=== PATIENT | female | born 1975 | race Caucasian/White ===

== ENCOUNTER 2018-05-19 18:19 | Emergency (ER) | payer BC ==
[2018-05-19 18:29] VITALS: O2SAT 100
--- NOTE | 2018-05-19 18:36 | ERPHSYRPT ---
- History of Present Illness Time Seen by Provider: 05/19/18 18:34 Source: patient Exam Limitations: no limitations Patient Subjective Stated Complaint: PT states "Back in February I was digging with a shovel and hit some rocks. I think I have a stress fracture on the top of my right foot." Triage Nursing Assessment: Pt alert and oriented X 3, skin pwd. PT ambulates with an upright steady gait, able to speak in clear full sentences. top of pt right foot has slight swelling noted. Physician History: 42 y/o white female presents with chronic intermittent right foot pain with intermittent swelling. pt injured right foot back in February of 2018 while digging up rocks at home. pain never has completely resolved Method of Injury: direct blow Occurred: other (2 months ago) Quality: intermittent, sharpness Severity of Pain-Max: mild Severity of Pain-Current: mild Lower Extremities Pain: foot: right Modifying Factors: Improves With: movement Associated Symptoms: other (hurts at times to walk on it), No unable to bear weight, No dizzy, No seizure, No snapping sensation, No popping sensation Allergies/Adverse Reactions: No Known Drug Allergies Allergy (Verified 05/19/18 18:29) Home Medications: No Reportable Medications [No Reported Medications] 05/19/18 [History] Hx Tetanus, Diphtheria Vaccination/Date Given: No Hx Influenza Vaccination/Date Given: No Hx Pneumococcal Vaccination/Date Given: No Immunizations Up to Date: Yes - Review of Systems Constitutional: No Symptoms Eyes: No Symptoms Ears, Nose, & Throat: No Symptoms Respiratory: No Symptoms Cardiac: No Symptoms Abdominal/Gastrointestinal: No Symptoms Genitourinary Symptoms: No Symptoms Musculoskeletal: Injury (right foot) Skin: No Symptoms Neurological: No Symptoms Psychological: No Symptoms Endocrine: No Symptoms - Past Medical History Pertinent Past Medical History: Yes Neurological History: No Pertinent History ENT History: No Pertinent History Cardiac History: No Pertinent History Respiratory History: No Pertinent History Endocrine Medical History: No Pertinent History Musculoskeletal History: No Pertinent History GI Medical History: No Pertinent History History: No Pertinent History Psycho-Social History: No Pertinent History Female Reproductive Disorders: No Pertinent History - Past Surgical History Past Surgical History: Yes Neuro Surgical History: No Pertinent History Cardiac: No Pertinent History Respiratory: No Pertinent History Gastrointestinal: No Pertinent History Genitourinary: No Pertinent History Musculoskeletal: Orthopedic Surgery Female Surgical History: No Pertinent History - Social History Smoking Status: Never smoker Exposure to second hand smoke: No Drug Use: none Patient Lives Alone: No - Female History Hx Last Menstrual Period: 04/14/2018 Hx Now: No - Nursing Vital Signs Nursing Vital Signs: Initial Vital Signs Temperature 98.5 F 05/19/18 18:22 Pulse Rate 88 05/19/18 18:22 Respiratory Rate 18 05/19/18 18:22 Blood Pressure 121/84 05/19/18 18:22 O2 Sat by Pulse Oximetry 100 05/19/18 18:22 Pain Scale Pain Intensity 5 - Physical Exam General Appearance: no apparent distress, alert, anxiety Eyes, Ears, Nose, Throat Exam: normal ENT inspection, moist mucous membranes Neck Exam: normal inspection, non-tender, supple, full range of motion Cardiovascular/Respiratory Exam: chest non-tender, no respiratory distress Gastrointestinal/Abdominal Exam: non-tender Back Exam: normal inspection, normal range of motion, No CVA tenderness, No vertebral tenderness Hips Exam: bilateral: non-tender, normal inspection, normal range of motion, no evidence of injury Legs Exam: bilateral leg: non-tender, normal inspection, normal range of motion , no evidence of injury Knees Exam: bilateral knee: non-tender, normal inspection, normal range of motion, no evidence of injury Ankle Exam: bilateral ankle: non-tender, normal inspection, normal range of motion, no evidence of injury Foot Exam: right foot: soft tissue tenderness, swelling, left foot: non-tender, bilateral foot: normal inspection, normal range of motion, no evidence of injury Neuro/Tendon Exam: normal sensation, normal motor functions, normal tendon functions, responds to pain, no evidence tendon injury Mental Status Exam: alert, oriented x 3, cooperative Skin Exam: normal color, warm, dry SpO2 Interpretation: normal SpO2: 100 Oxygen Delivery: Room Air - Course Nursing assessment & vital signs reviewed: Yes Ordered Tests: Active Orders 24 hr Category Date Time Status FOOT (MINIMUM 3 VIEWS) Stat Exams 05/19/18 18:41 Taken Lab/Rad Data: xray right foot- no acute fx or dislocation - Progress Progress: unchanged Counseled pt/family regarding: diagnosis, need for follow-up, rad results - Departure Time of Disposition: 19:04 Departure Disposition: Home Clinical Impression: Right foot pain Condition: Stable Critical Care Time: No Referrals: ADRIANNE CANO [Primary Care Provider] - Additional Instructions: ice pack to area 3 times daily for 2 days. use tylenol and ibuprofen for pain. follow up with primary doctor for further management.
[2018-05-19 19:17] VITALS: BP 107/60; PULSE 80
--- NOTE | 2018-05-20 08:36 | XRAY ---
Indication: Pain and swelling following injury. Comparison: None 3 nonweightbearing views of the right foot demonstrates small plantar heel spur and tiny distal tibia anterior spur. No other bony, articular, or soft tissue abnormalities.
== END 2018-05-19 19:24 | disposition home or self-care (01) ==
LOC: ED 18:19
DX: M79.671 Pain in right foot (principal); M25.474 Effusion, right foot
CPT/HCPCS: 73630; 99283

== ENCOUNTER 2022-10-03 20:56 | Emergency (ER) | payer BC ==
--- NOTE | 2022-10-03 21:06 | ERPHSYRPT ---
- History of Present Illness Time Seen by Provider: 10/03/22 21:06 Source: patient, family Exam Limitations: no limitations Physician History: This is a morbidly obese white female patient of Dr. Hendricks who has had coughing and spells of shortness of breath with coughing intermittently for the last 2 weeks. However last few days it is becoming more constant. 2 days ago and just prior she had a negative COVID test. 2 days ago she was tested for influenza AMB and they were negative. Patient states she is not improving. She does not have chest pain. She has no abdominal pain. She said no nausea vomiting or diarrhea. She takes no medications chronically and she has no known drug allergies. Timing/Duration: week(s) (2), worse Severity of Dyspnea-Max: mild (To moderate) Severity of Dyspnea-Current: mild Possible Cause: no prior episodes Associated Symptoms: cough, wheezing Allergies/Adverse Reactions: No Known Drug Allergies Allergy (Verified 10/03/22 20:57) Hx Tetanus, Diphtheria Vaccination/Date Given: No Hx Influenza Vaccination/Date Given: No Hx Pneumococcal Vaccination/Date Given: No Travel Risk - International Travel Have you traveled outside of the country in past 3 weeks: No - Coronavirus Screening Are you exhibiting any of the following symptoms?: Yes Symptoms: Cough: New Onset, Shortness of Breath Close contact with a COVID-19 positive Pt in past 14-21 Days: Yes - Review of Systems Constitutional: No Symptoms Eyes: No Symptoms Ears, Nose, & Throat: No Symptoms Respiratory: No Symptoms, Cough, Dyspnea (With coughing), Wheezing (Bilateral upper lungs) Cardiac: No Symptoms Abdominal/Gastrointestinal: No Symptoms Genitourinary Symptoms: No Symptoms Musculoskeletal: No Symptoms Skin: No Symptoms Neurological: No Symptoms Psychological: No Symptoms Endocrine: No Symptoms Hematologic/Lymphatic: No Symptoms Immunological/Allergic: No Symptoms All Other Systems: Reviewed and Negative - Past Medical History Pertinent Past Medical History: Yes Neurological History: No Pertinent History ENT History: No Pertinent History Cardiac History: No Pertinent History Respiratory History: No Pertinent History Endocrine Medical History: No Pertinent History Musculoskeletal History: No Pertinent History GI Medical History: No Pertinent History History: No Pertinent History Psycho-Social History: No Pertinent History Female Reproductive Disorders: No Pertinent History - Past Surgical History Past Surgical History: Yes Neuro Surgical History: No Pertinent History Cardiac: No Pertinent History Respiratory: No Pertinent History Gastrointestinal: No Pertinent History Genitourinary: No Pertinent History Musculoskeletal: Orthopedic Surgery Female Surgical History: No Pertinent History - Social History Smoking Status: Never smoker Exposure to second hand smoke: No Drug Use: none Patient Lives Alone: No - Nursing Vital Signs Nursing Vital Signs: Initial Vital Signs Temperature 96.3 F 10/03/22 20:57 Pulse Rate 114 H 10/03/22 20:57 Respiratory Rate 24 10/03/22 20:57 Blood Pressure 164/119 10/03/22 20:57 O2 Sat by Pulse Oximetry 99 10/03/22 20:57 Pain Scale Pain Intensity 4 - Physical Exam General Appearance: no apparent distress, alert, anxiety Eye Exam: PERRL/EOMI, eyes nml inspection Ears, Nose, Throat Exam: hearing grossly normal, normal ENT inspection, normal pharynx Neck Exam: normal inspection, non-tender, supple, full range of motion Respiratory Exam: wheezing (Mild bilateral upper wheezing that is expiratory), No chest tenderness, No respiratory distress Cardiovascular/Chest Exam: tachycardia Abdominal/Gastrointestinal Exam: soft, normal bowel sounds, No tenderness Rectal Exam: not done Extremity Exam: non-tender, normal range of motion, normal inspection Neurologic Exam: alert, oriented x 3, cooperative, cut out worker II-XII nml as tested, normal mood/affect, nml cerebellar function, nml station & gait Skin Exam: normal color, warm, dry Lymphatic Exam: No adenopathy SpO2 Interpretation: normal O2 Delivery: Room Air Ordered Tests: Active Orders 24 hr Category Date Time Status CHEST 1 VIEW (PORTABLE) Stat Exams 10/03/22 21:21 Taken CHEST WITH CONTRAST [CT] Stat Exams 10/03/22 22:47 Taken BMP Stat Lab 10/03/22 21:21 Completed CBC W DIFF Stat Lab 10/03/22 21:21 Completed D-DIMER QUANTITATIVE Stat Lab 10/03/22 21:20 Completed Respiratory Therapy Assessment DAILY RT 10/03/22 21:32 Active Medication Summary Discontinued Medications Generic Name Dose Route Start Last Admin Trade Name Freq PRN Reason Stop Dose Admin Hydrocodone Bitart/Acetaminophen 10 ml 10/04/22 01:20 Hydrocodone/Acetaminophen 5 Ml Udcup PO 10/04/22 01:21 STAT STA Albuterol Sulfate Confirm 10/03/22 21:20 Albuterol Sulfate 2.5 Mg/3 Ml Neb Administered 10/03/22 21:21 Dose 2.5 mg IH .STK-MED ONE Albuterol Sulfate 2.5 mg 10/03/22 21:31 10/03/22 21:25 Albuterol Sulfate 2.5 Mg/3 Ml Neb IH 10/03/22 21:32 2.5 mg STAT ONE Administration Albuterol Sulfate Confirm 10/04/22 01:30 Albuterol Sulfate 2.5 Mg/3 Ml Neb Administered 10/04/22 01:31 Dose 2.5 mg IH .STK-MED ONE Ceftriaxone Sodium 1,000 mg 10/03/22 22:28 10/03/22 22:39 Ceftriaxone Sodium 1000 Mg Inj Vial IM 10/03/22 22:29 1,000 mg STAT ONE Administration Ceftriaxone Sodium Confirm 10/03/22 22:35 Ceftriaxone Sodium 1000 Mg Inj Vial Administered 10/03/22 22:36 Dose 1,000 mg .ROUTE .STK-MED ONE Sodium Chloride 500 mls @ 500 mls/hr 10/03/22 22:45 10/04/22 00:43 Sodium Chloride 0.9% 500 Ml IV 10/03/22 23:44 Infused .Q1H ONE Infusion Sodium Chloride Confirm 10/03/22 23:30 Sodium Chloride 0.9% 500 Ml Administered 10/03/22 23:31 Dose 500 mls @ ud IV .STK-MED ONE Lidocaine HCl Confirm 10/03/22 22:35 Lidocaine Hcl 1% 20 Ml Mdv 20 Ml Ml Administered 10/03/22 22:36 Dose 3 ml .ROUTE .STK-MED ONE Ondansetron HCl 4 mg 10/03/22 22:46 10/03/22 23:31 Ondansetron Hcl 4 Mg/2 Ml Vial IV 10/03/22 22:47 4 mg STAT ONE Administration Ondansetron HCl Confirm 10/03/22 23:30 Ondansetron Hcl 4 Mg/2 Ml Vial Administered 10/03/22 23:31 Dose 4 mg .ROUTE .STK-MED ONE Lab/Rad Data: Laboratory Result Diagrams 10/03/22 21:21 10/03/22 21:21 Laboratory Results 10/03/22 10/03/22 10/03/22 Range/Units Unknown 21:21 21:21 WBC 16.1 H (4.0-10.5) x10^3/uL RBC 4.46 (4.1-5.4) x10^6/uL Hgb 13.3 (12.0-16.0) g/dL Hct 42.6 (35-47) % MCV 95.5 (78-100) fL MCH 29.8 (26-32) pg MCHC 31.2 L (32-36) g/dL RDW 13.1 (11.5-14.0) % Plt Count 264 (150-450) x10^3/uL MPV 9.7 (7.5-11.0) fL Gran % 86.4 H (36.0-66.0) % Immature Gran % (Auto) 0.7 H (0.00-0.4) % Nucleat RBC Rel Count 0.0 (0.00-0.1) % Eos # (Auto) 0.89 H (0-0.5) x10^3/uL Immature Gran # (Auto) 0.11 H (0.00-0.03) x10^3u/L Absolute Lymphs (auto) 0.79 L (1.0-4.6) x10^3/uL Absolute Monos (auto) 0.38 (0.0-1.3) x10^3/uL Absolute Nucleated RBC 0.00 (0.00-0.01) x10^3u/L Lymphocytes % 4.9 L (24.0-44.0) % Monocytes % 2.4 (0.0-12.0) % Eosinophils % 5.5 H (0.00-5.0) % Basophils % 0.1 (0.0-0.4) % Absolute Granulocytes 13.95 H (1.4-6.9) x10^3/uL Basophils # 0.02 (0-0.4) x10^3/uL D-Dimer (0.0-0.50) mg/L Sodium 137 (137-145) mmol/L Potassium 3.8 (3.5-5.1) mmol/L Chloride 101 (98-107) mmol/L Carbon Dioxide 25 (22-30) mmol/L Anion Gap 15.1 H (5-15) MEQ/L BUN 17 (7-17) mg/dL Creatinine 0.56 (0.52-1.04) mg/dL Estimated GFR > 60.0 ML/MIN Glucose 123 H (74-106) mg/dL Calcium 9.4 (8.4-10.2) mg/dL Influenza Type A Ag NEGATIVE (NEGATIVE) Influenza Type B Ag NEGATIVE (NEGATIVE) RSV (PCR) NEGATIVE (Negative) SARS-CoV-2 (PCR) NEGATIVE (NEGATIVE) Group A Strep Antibody Cancelled 10/03/22 Range/Units 21:20 WBC (4.0-10.5) x10^3/uL RBC (4.1-5.4) x10^6/uL Hgb (12.0-16.0) g/dL Hct (35-47) % MCV (78-100) fL MCH (26-32) pg MCHC (32-36) g/dL RDW (11.5-14.0) % Plt Count (150-450) x10^3/uL MPV (7.5-11.0) fL Gran % (36.0-66.0) % Immature Gran % (Auto) (0.00-0.4) % Nucleat RBC Rel Count (0.00-0.1) % Eos # (Auto) (0-0.5) x10^3/uL Immature Gran # (Auto) (0.00-0.03) x10^3u/L Absolute Lymphs (auto) (1.0-4.6) x10^3/uL Absolute Monos (auto) (0.0-1.3) x10^3/uL Absolute Nucleated RBC (0.00-0.01) x10^3u/L Lymphocytes % (24.0-44.0) % Monocytes % (0.0-12.0) % Eosinophils % (0.00-5.0) % Basophils % (0.0-0.4) % Absolute Granulocytes (1.4-6.9) x10^3/uL Basophils # (0-0.4) x10^3/uL D-Dimer 1.34 H* (0.0-0.50) mg/L Sodium (137-145) mmol/L Potassium (3.5-5.1) mmol/L Chloride (98-107) mmol/L Carbon Dioxide (22-30) mmol/L Anion Gap (5-15) MEQ/L BUN (7-17) mg/dL Creatinine (0.52-1.04) mg/dL Estimated GFR ML/MIN Glucose (74-106) mg/dL Calcium (8.4-10.2) mg/dL Influenza Type A Ag (NEGATIVE) Influenza Type B Ag (NEGATIVE) RSV (PCR) (Negative) SARS-CoV-2 (PCR) (NEGATIVE) Group A Strep Antibody - Progress Progress: improved, re-examined Air Movement: good Progress Note: 10/03/22 22:12 Chest x-ray was interpreted by me. There is a questionable haziness in the right upper lobe. No other acute cardiopulmonary process appreciated. 10/03/22 22:13 This patient's medical issue is 1 of moderate complexity. The patient work-up and the level of complexity is based on the review of the patient's past medical history, medication list, drug allergy list, past medical history and complaint as well as findings on physical examination. Work-up includes chest x-ray, CBC, CMP, D-dimer. We also performed group A strep swab and viral swabs. 10/03/22 23:11 Patient's D-dimer returned elevated and therefore we placed an IV, infusing normal saline solution and ordered a CTA of the chest to evaluate for pulmonary embolus. Patient did have an episode of mild acute vomiting. She feels better now. We will infuse Zofran 4 mg intravenously. Patient refused the group A strep swab. 10/04/22 01:17 Patient is feeling better at this time. Discharge plan is to provide the patient with a prescription for cefdinir 300 mg orally twice a day for 7 days and Zofran ODT 4 mg orally. 10/04/22 01:35 CT chest with contrast shows no pulmonary embolism. There is no aortic dissection. Blood Culture(s) Obtained: No Antibiotics given: Yes Counseled pt/family regarding: lab results, diagnosis, need for follow-up, rad results Medical Desision Making - Independent Historian Additional History obtained from: Spouse - Discussion of managment Reviewed:: Test results Agreed on:: Treatment plan, need for follow-up - Diagnostic Testing Diagnostic test were ordered, analyzed, and reviewed by me: Yes Radiological Interpretation: Interpreted by me - Risk of complications The pt has a mod risk of morbidity or mortality based on: Need for prescription drug management - Departure Departure Disposition: Home Clinical Impression: Pulmonary infiltrate in right lung on CXR, Leukocytosis Condition: Stable Critical Care Time: No Referrals: LOUISE HENDRICKS MD [Primary Care Provider] - Follow up/PCP as directed Additional Instructions: Drink plenty fluids. Take your medication as prescribed. Follow-up with your prescribing physician for further evaluation and management Prescriptions: Ondansetron ODT 4 MG [Zofran Odt 4 mg] 4 mg PO Q6H PRN PRN #10 tablet PRN Reason: Vomiting Cefdinir 300 mg PO BID #14 cap
[2022-10-03] MEDS ORDERED: PROVENTIL 2.5 MG/3 ML NEB IH ONE ×2 (21:20→21:31)
[2022-10-03 22:08] LABS: Absolute Neutrophil Ct (ANC) 13.95 x10^3/uL (1.4-6.9); BASOPHIL % 0.1 % (0.0-0.4); Basophil (Absolute #) 0.02 x10^3/uL (0-0.4); Eosinophil % 5.5 % (0.00-5.0); Eosinophil (Absolute #) 0.89 x10^3/uL (0-0.5); Hematocrit 42.6 % (35-47); Hemoglobin 13.3 g/dL (12.0-16.0); IMMATURE GRAN # 0.11 x10^3u/L (0.00-0.03); IMMATURE GRAN % 0.7 % (0.00-0.4); Lymphocyte (Absolute #) 0.79 x10^3/uL (1.0-4.6); Lymphocytes % 4.9 % (24.0-44.0); Mean Cell Volume 95.5 fL (78-100); Mean Corpuscular Hemoglobin 29.8 pg (26-32); Mean Corpuscular Hgb Concent. 31.2 g/dL (32-36); Mean Platelet Volume 9.7 fL (7.5-11.0); Monocyte (Absolute #) 0.38 x10^3/uL (0.0-1.3); Monocytes % 2.4 % (0.0-12.0); Neutrophil % 86.4 % (36.0-66.0); Platelet Count 264 x10^3/uL (150-450); Red Blood Count 4.46 x10^6/uL (4.1-5.4); Red Cell Distribution Width 13.1 % (11.5-14.0); White Blood Count 16.1 x10^3/uL (4.0-10.5)
[2022-10-03 22:23] LABS: ANION GAP 15.1 MEQ/L (5-15); BLOOD UREA NITROGEN 17 mg/dL (7-17); CHLORIDE 101 mmol/L (98-107); Calcium 9.4 mg/dL (8.4-10.2); Carbon Dioxide 25 mmol/L (22-30); Creatinine 1 0.56 mg/dL (0.52-1.04); EST GLOMERULAR FILTRATION RATE > 60.0 ML/MIN; Glucose 123 mg/dL (74-106); Potassium 3.8 mmol/L (3.5-5.1); SODIUM 137 mmol/L (137-145)
[2022-10-03] MEDS ORDERED: Rocephin 1000 MG INJ IM ONE (22:28)
[2022-10-03 22:32] LABS: INFLUENZA A NEGATIVE (NEGATIVE); INFLUENZA B NEGATIVE (NEGATIVE); RESPIRATORY SYNCTIAL VIRUS NEGATIVE (Negative); SARS-CoV-2 Xpert Express NEGATIVE (NEGATIVE)
[2022-10-03] MEDS ORDERED: Rocephin 1000 MG INJ ONE (22:35)
[2022-10-03] MEDS ORDERED: XYLOCAINE 1% HCL 20 ML MDV ONE (22:35)
[2022-10-03] MEDS ORDERED: Sodium Chloride 0.9% 500 ML 500 ML IV ONE ×2 (22:45→23:30)
[2022-10-03] MEDS ORDERED: Zofran 4 MG/2 ML VIAL IV ONE (22:46)
[2022-10-03] MEDS ORDERED: Zofran 4 MG/2 ML VIAL ONE (23:30)
[2022-10-04] MEDS ORDERED: HYDROCODONE-ACETAMIN 2.5-108/5 ML SOLUTION PO STA (01:20)
[2022-10-04] MEDS ORDERED: PROVENTIL 2.5 MG/3 ML NEB IH ONE ×2 (01:30→01:41)
[2022-10-04] MEDS ORDERED: HYDROCODONE-ACETAMIN 2.5-108/5 ML SOLUTION ONE (01:41)
[2022-10-04 03:00] VITALS: BP 141/89; PULSE 128; O2SAT 98
--- NOTE | 2022-10-04 07:57 | XRAY ---
Indication: Cough and short of breath. Elevated d-dimer. Pulmonary embolus. Multiple contiguous axial images obtained through the chest using 88 cc Isovue 370 contrast and PE protocol. Comparison: None Adequate opacification of the pulmonary arteries to include the lobar and segmental branches. No pulmonary embolus. Heart not enlarged. Aorta is normal in course and caliber. No pathologic mediastinal/hilar lymphadenopathy. Lungs demonstrates tiny right upper lobe calcified granuloma. No suspicious pulmonary mass/nodule, infiltrate, effusion, or pneumothorax. Bony thorax intact with minimal degenerative changes throughout the spine. Limited upper abdomen demonstrates cholecystectomy clips. Impression: 1. Negative pulmonary embolus. No acute cardiopulmonary abnormalities. 2. Incidental right upper lobe calcified granuloma and minimal degenerative spondylosis. Comment: Preliminary interpretation made by [facility]. No critical discrepancy.
--- NOTE | 2022-10-04 07:57 | XRAY ---
Indication: Cough. Short of breath. Comparison: Sep 22, 2022 Portable chest demonstrates normal heart and lungs again with incidental right mid lung calcified granuloma. Bony thorax intact with minimal degenerative changes. No new/acute findings.
== END 2022-10-04 03:00 | disposition home or self-care (01) ==
LOC: ED 20:56
DX: R91.8 Other nonspecific abnormal finding of lung field (principal); D72.829 Elevated white blood cell count, unspecified; R06.02 Shortness of breath; R05.9 Cough, unspecified
CPT/HCPCS: 0241U; 36000; 36415; 71045; 71260; 80048; 85025; 85379; 94640; 96360; 96372; 96374; 99284; J0696; J2405; J7609; A9270-GY

== ENCOUNTER 2023-10-21 16:58 | Emergency (ER) | payer BC ==
--- NOTE | 2023-10-21 17:14 | ERPHSYRPT ---
- History of Present Illness Historian: patient, family Exam Limitations: no limitations Timing/Duration: day(s) (2 to 3 days), other (Persistent) Abdominal Pain Onset Location: flank (Bilateral) Pain Radiation: RLQ, LLQ Severity of Pain-Max: mild (To moderate) Severity of Pain-Current: mild (To moderate) Modifying Factors: Improves With: movement, walking Associated Symptoms: denies symptoms Previous symptoms: no prior history, no recent treatment Hx Tetanus, Diphtheria Vaccination/Date Given: No Hx Influenza Vaccination/Date Given: No Hx Pneumococcal Vaccination/Date Given: No <MATILDE ALFARO - Last Filed: 10/21/23 18:50> <APOLLO ARAUZ - Last Filed: 10/21/23 20:07> - History of Present Illness Time Seen by Provider: 10/21/23 17:14 Physician History: This is an obese 48-year-old white female patient Dr. Manzano who presents with bilateral flank and bilateral lower quadrant abdominal pain. She is unsure whether this is infection or possibly muscular pain from lifting several records from one office and moving into another. What was different for her was approximately 2 days ago she noticed significant right flank pain with an episode of hematuria. Patient has had a tubal ligation in the past. She is currently not on her menstrual period. Under the subsequent 2 days the pain is also in the left flank and left lower quadrant. She has not been vomiting. She has not had a cough. She denies chest pain. She has not had any diarrhea. Patient takes no medications chronically and she has no known drug allergies. Patient has no history of kidney stones or ureteral stones. (MATILDE ALFARO) Allergies/Adverse Reactions: No Known Drug Allergies Allergy (Verified 10/21/23 17:12) Travel Risk - International Travel Have you traveled outside of the country in past 3 weeks: No - Emerging Infectious Disease Are you exhibiting symptoms associated with any current EIDs: No <MATILDE ALFARO - Last Filed: 10/21/23 18:50> - Review of Systems Constitutional: No Symptoms Eyes: No Symptoms Ears, Nose, & Throat: No Symptoms Respiratory: No Symptoms Cardiac: No Symptoms Abdominal/Gastrointestinal: Abdominal Pain (Bilateral lower quadrant) Genitourinary Symptoms: Hematuria (Single episode of gross hematuria), Flank Pain (Bilateral) Musculoskeletal: No Symptoms Skin: No Symptoms Neurological: No Symptoms Psychological: No Symptoms Endocrine: No Symptoms Hematologic/Lymphatic: No Symptoms Immunological/Allergic: No Symptoms All Other Systems: Reviewed and Negative <MATILDE ALFARO - Last Filed: 10/21/23 18:50> - Past Medical History Pertinent Past Medical History: Yes Neurological History: No Pertinent History ENT History: No Pertinent History Cardiac History: No Pertinent History Respiratory History: No Pertinent History Endocrine Medical History: No Pertinent History Musculoskeletal History: No Pertinent History GI Medical History: No Pertinent History History: No Pertinent History Psycho-Social History: No Pertinent History Female Reproductive Disorders: No Pertinent History - Past Surgical History Past Surgical History: Yes Neuro Surgical History: No Pertinent History Cardiac: No Pertinent History Respiratory: No Pertinent History Gastrointestinal: No Pertinent History Genitourinary: No Pertinent History Musculoskeletal: Orthopedic Surgery Female Surgical History: No Pertinent History - Social History Smoking Status: Never smoker Exposure to second hand smoke: No Drug Use: none Patient Lives Alone: No <MATILDE ALFARO - Last Filed: 10/21/23 18:50> - Physical Exam General Appearance: no apparent distress, alert, anxiety, obese Eye Exam: PERRL/EOMI, eyes nml inspection Ears, Nose, Throat Exam: normal ENT inspection, moist mucous membranes Neck Exam: normal inspection, non-tender, supple, full range of motion Respiratory Exam: normal breath sounds, lungs clear, airway intact, No chest tenderness, No respiratory distress Cardiovascular Exam: regular rate/rhythm, normal heart sounds, normal peripheral pulses Gastrointestinal/Abdomen Exam: soft, normal bowel sounds, tenderness (Mild bilateral lower quadrant tenderness), guarding (Mild bilateral lower quadrant tenderness to palpation), No rebound Pelvic Exam: not done Rectal Exam: not done Back Exam: normal inspection, normal range of motion, CVA tenderness (Mild bilateral), No vertebral tenderness Extremity Exam: normal inspection, normal range of motion, pelvis stable Neurologic Exam: alert, oriented x 3, cooperative, delivery nurse II-XII nml as tested, normal mood/affect, nml cerebellar function, nml station & gait, sensation nml Skin Exam: normal color, warm, dry Lymphatic Exam: No adenopathy SpO2 Interpretation: normal O2 Delivery: Room Air <MATILDE ALFARO - Last Filed: 10/21/23 18:50> - Nursing Vital Signs Nursing Vital Signs: Initial Vital Signs Temperature 98.4 F 10/21/23 17:13 Pulse Rate 102 H 10/21/23 17:13 Respiratory Rate 18 10/21/23 17:13 Blood Pressure 133/73 10/21/23 17:13 O2 Sat by Pulse Oximetry 95 10/21/23 17:13 Pain Scale Pain Intensity 4 - Course Nursing assessment & vital signs reviewed: Yes <MATILDE ALFARO - Last Filed: 10/21/23 18:50> Ordered Tests: Active Orders 24 hr Category Date Time Status IV Insertion STAT Care 10/21/23 17:39 Active ABDOMEN AND PELVIS W/0 CONTRAS [CT] Stat Exams 10/21/23 17:34 Taken CBC W DIFF Stat Lab 10/21/23 19:30 Completed CMP Stat Lab 10/21/23 19:30 Completed CULTURE,URINE Stat Lab 10/21/23 18:52 Received LIPASE Stat Lab 10/21/23 19:30 Completed UA W/RFX UR CULTURE Stat Lab 10/21/23 18:52 Completed Medication Summary Discontinued Medications Generic Name Dose Route Start Last Admin Trade Name Jcalrosq PRN Reason Stop Dose Admin Sodium Chloride 500 mls @ 500 mls/hr 10/21/23 17:35 10/21/23 18:41 Sodium Chloride 0.9% 500 Ml IV 10/21/23 18:34 Infused .Q1H ONE Infusion Sodium Chloride Confirm 10/21/23 17:40 Sodium Chloride 0.9% 500 Ml Administered 10/21/23 17:41 Dose 500 mls @ ud IV .STK-MED ONE Ceftriaxone Sodium/Dextrose 2 g in 50 mls @ 100 mls/hr 10/21/23 19:25 10/21/23 19:30 Rocephin 2 Gm-D5w 50ml Bag IV 10/21/23 19:54 100 ml/hr STAT STA 100 mls/hr Administration Ceftriaxone Sodium/Dextrose Confirm 10/21/23 19:26 Rocephin 2 Gm-D5w 50ml Bag Administered 10/21/23 19:27 Dose 2 g in 50 mls @ ud IV .STK-MED ONE Lab/Rad Data: Laboratory Result Diagrams 10/21/23 19:30 10/21/23 19:30 Laboratory Results 03/28/24 03/28/24 03/28/24 Range/Units 19:30 19:30 18:52 WBC 11.6 H (4.0-10.5) x10^3/uL RBC 4.07 L (4.1-5.4) x10^6/uL Hgb 12.4 (12.0-16.0) g/dL Hct 38.9 (35-47) % MCV 95.6 (78-100) fL MCH 30.5 (26-32) pg MCHC 31.9 L (32-36) g/dL RDW 12.9 (11.5-14.0) % Plt Count 312 (150-450) x10^3/uL MPV 11.8 H (7.5-11.0) fL Gran % 71.7 H (36.0-66.0) % Immature Gran % (Auto) 0.3 (0.00-0.4) % Nucleat RBC Rel Count 0.0 (0.00-0.1) % Eos # (Auto) 0.19 (0-0.5) x10^3/uL Immature Gran # (Auto) 0.04 H (0.00-0.03) x10^3u/L Absolute Lymphs (auto) 2.07 (1.0-4.6) x10^3/uL Absolute Monos (auto) 0.94 (0.0-1.3) x10^3/uL Absolute Nucleated RBC 0.00 (0.00-0.01) x10^3u/L Lymphocytes % 17.9 L (24.0-44.0) % Monocytes % 8.1 (0.0-12.0) % Eosinophils % 1.6 (0.00-5.0) % Basophils % 0.4 (0.0-0.4) % Absolute Granulocytes 8.26 H (1.4-6.9) x10^3/uL Basophils # 0.05 (0-0.4) x10^3/uL Sodium 140 (135-145) mmol/L Potassium 4.0 (3.5-5.1) mmol/L Chloride 107 (98-107) mmol/L Carbon Dioxide 23 (22-30) mmol/L Anion Gap 14.6 (5-15) MEQ/L BUN 15 (7-17) mg/dL Creatinine 0.69 (0.52-1.04) mg/dL Estimated GFR 107.0 ML/MIN Glucose 83 (74-106) mg/dL Calcium 9.6 (8.4-10.2) mg/dL Total Bilirubin 0.40 (0.2-1.3) mg/dL AST 22 (14-36) U/L ALT 22 (0-35) U/L Alkaline Phosphatase 71 (38-126) U/L Serum Total Protein 7.3 (6.3-8.2) g/dL Albumin 4.2 (3.5-5.0) g/dL Lipase 70 (23-300) U/L Urine Color Yellow (Yellow) Urine Appearance Clear (Clear) Urine pH 6.0 (4.6-8.0) Ur Specific [place] 1.020 (1.005-1.030) Urine Protein Negative (Negative) Urine Glucose (UA) Negative (Negative) mg/dL Urine Ketones Negative (Negative) Urine Blood NHT (Negative) Urine Nitrite Negative (Negative) Urine Bilirubin Negative (Negative) Urine Urobilinogen 1.0 A (0.2) mg/dL Ur Leukocyte Esterase Moderate A (Negative) Urine Microscopic RBC 0-2 (0-5) /HPF Urine Microscopic WBC 21-50 A (0-5) /HPF Ur Epithelial Cells Rare (None Seen) /HPF Urine Bacteria Few A (None Seen) /HPF Urine Culture Reflexed YES (NO) - Progress Counseled pt/family regarding: lab results, diagnosis, rad results <MATILDE ALFARO - Last Filed: 10/21/23 18:50> - Progress Progress: improved <APOLLO ARAUZ - Last Filed: 10/21/23 20:07> - Progress Progress Note: 10/21/23 18:11 This patient's medical issue is 1 of moderate complexity. Level complexity in the workup performed is based on review of the patient's past medical history, review the patient medication list, review of patient drug allergy list, history of present illness and physical findings on examination. The initial workup decided upon between the patient and myself includes a urinalysis and a CT scan of the abdomen pelvis without contrast. If everything is negative, we will add laboratory data will. If the CT scan of the abdomen pelvis is negative but there is a urinary tract infection, we will treat her urinary tract infection and discharged her to home. 10/21/23 18:[address] scan of the abdomen pelvis without contrast was interpreted by the radiologist. I reviewed the impression. Impression states there are no comparison films. There is a normal appendix. There is right renal cortical scarring. Otherwise negative study for renal stone or evidence of obstructive uropathy 10/21/23 18:43 I am transferring care of this patient to Dr. Arauz at shift change. He will follow-up on the pending laboratory studies and make final disposition. (MATILDE TALLEY) 10/21/23 20:02 Patient is checked out to me at shift change from Dr. Merida with pending urinalysis results. Patient presented with bilateral flank/lower abdominal pa in/back pain which started after lifting heavy objects few days ago. Patient is not in any distress during my evaluation. No peritoneal signs. CT abdomen pelvis without contrast is negative for stone, obstruction or any other acute abdominal pelvic findings. I have obtained baseline labs with a CBC count of 11, unremarkable chemistries. She does have UTI and given a dose of Rocephin. I will continue with cefpodoxime to go home and outpatient follow-up recommended. I believe it has some element of musculoskeletal pain and will continue with NSAIDs. Recommended taking Tylenol ibuprofen as needed. Discussed signs symptoms of worsening needing return to ER which she seems understanding. Stable for discharge. 10/21/23 20:06 (APOLLO ARAUZ) Medical Desision Making - Independent Historian Additional History obtained from: Spouse - Diagnostic Testing Radiological Interpretation: Reviewed by me, Teleradiologist Report - Risk of complications Low Risk: Low risk of morbidity from additional dx testing or treatment <MATILDE ALFARO - Last Filed: 10/21/23 18:50> - Risk of complications The pt has a mod risk of morbidity or mortality based on: Need for prescription drug management <APOLLO ARAUZ - Last Filed: 10/21/23 20:07> - Departure Departure Disposition: Home Critical Care Time: No <MATILDE ALFARO - Last Filed: 10/21/23 18:50> - Departure Departure Disposition: Home <APOLLO ARAUZ - Last Filed: 10/21/23 20:07> - Departure Clinical Impression: Bilateral flank pain, UTI (urinary tract infection) Condition: Stable Referrals: LOUISE MANZANO MD [Primary Care Provider] - Follow up with PCP 1 day Instructions: Urinary Tract Infection, Adult (DC), Flank Pain (DC) Additional Instructions: Take Tylenol/ibuprofen as needed for pain. Follow-up with primary care for reevaluation. Return to ER for intractable pain, difficulty urination, intractable nausea vomiting/fever chills etc. Prescriptions: Ibuprofen 600 mg PO Q6HPRN PRN 10 Days #20 tablet PRN Reason: Pain Cefpodoxime Proxetil 200 mg [Vantin 200 mg] 200 mg PO BID 7 Days #14 tablet
[2023-10-21 17:22] VITALS: TEMP 98.4
[2023-10-21] MEDS ORDERED: Sodium Chloride 0.9% 500 ML 500 ML IV ONE (17:40)
[2023-10-21] MEDS: Sodium Chloride 0.9% 500 ML 500 ML IV ONE (17:41)
[2023-10-21 19:02] LABS: Appearance Clear (Clear); Bilirubin Negative (Negative); Blood NHT (Negative); Glucose, Urine Negative (Negative); Ketones Negative (Negative); Leukocyte Esterase Moderate (Negative); Nitrite Negative (Negative); Protein,Urine Dip Negative (Negative)
[2023-10-21 19:10] LABS: ADD URINE CULTURE? YES (NO); Bacteria Few /HPF (None Seen); Epithelial Cells Rare /HPF (None Seen); RBC 0-2 /HPF (0-5); WBC 21-50 /HPF (0-5)
[2023-10-21] MEDS ORDERED: ROCEPHIN 2 Gm-D5w 50ML BAG** 2 G/50 ML IVPB IV ONE (19:26)
[2023-10-21] MEDS: ROCEPHIN 2 Gm-D5w 50ML BAG** 2 G/50 ML IVPB IV STA (19:30)
[2023-10-21 19:33] LABS: Absolute Neutrophil Ct (ANC) 8.26 x10^3/uL (1.4-6.9); BASOPHIL % 0.4 % (0.0-0.4); Basophil (Absolute #) 0.05 x10^3/uL (0-0.4); Eosinophil % 1.6 % (0.00-5.0); Eosinophil (Absolute #) 0.19 x10^3/uL (0-0.5); Hematocrit 38.9 % (35-47); Hemoglobin 12.4 g/dL (12.0-16.0); IMMATURE GRAN # 0.04 x10^3u/L (0.00-0.03); IMMATURE GRAN % 0.3 % (0.00-0.4); Lymphocyte (Absolute #) 2.07 x10^3/uL (1.0-4.6); Lymphocytes % 17.9 % (24.0-44.0); Mean Cell Volume 95.6 fL (78-100); Mean Corpuscular Hemoglobin 30.5 pg (26-32); Mean Corpuscular Hgb Concent. 31.9 g/dL (32-36); Mean Platelet Volume 11.8 fL (7.5-11.0); Monocyte (Absolute #) 0.94 x10^3/uL (0.0-1.3); Monocytes % 8.1 % (0.0-12.0); Neutrophil % 71.7 % (36.0-66.0); Platelet Count 312 x10^3/uL (150-450); Red Blood Count 4.07 x10^6/uL (4.1-5.4); Red Cell Distribution Width 12.9 % (11.5-14.0); White Blood Count 11.6 x10^3/uL (4.0-10.5)
[2023-10-21 19:37] VITALS: RESP 18; O2SAT 98
[2023-10-21 19:46] LABS: ALBUMIN 4.2 g/dL (3.5-5.0); ANION GAP 14.6 MEQ/L (5-15); BILIRUBIN,TOTAL 0.4 mg/dL (0.2-1.3); Calcium 9.6 mg/dL (8.4-10.2); Creatinine 1 0.69 mg/dL (0.52-1.04); Total Protein 7.3 g/dL (6.3-8.2)
[2023-10-21 20:10] VITALS: BP 120/73; PULSE 86
--- NOTE | 2023-10-22 09:06 | XRAY ---
Indication: Bilateral flank and bilateral lower quadrant abdominal pain. Hematuria. Multiple contiguous axial images obtained through the abdomen and pelvis without contrast using renal stone protocol. Comparison: None Lung bases clear. Heart not enlarged. No renal calculus or evidence for obstructive uropathy in either system. Right mid renal cortical scarring. Noncontrasted stomach and bowel loops appear nonobstructed with normal appendix. Previous cholecystectomy. No free fluid/air. Remaining liver, pancreas, spleen, adrenal glands, kidneys, ureters, bladder, uterus, and aorta are unremarkable for noncontrast exam. Osseous structures intact with minimal/mild degenerative spondylosis throughout spine including 2- 3 mm anterior spondylolisthesis L4 on L5. Impression: 1. Negative renal calculus or evidence for obstructive uropathy. Right renal cortical scarring. 2. Chronic bony findings. 3. Remaining CT abdomen/pelvis without contrast exam is negative.
== END 2023-10-21 20:27 | disposition home or self-care (01) ==
LOC: ED 16:58
DX: N39.0 Urinary tract infection, site not specified (principal); R10.31 Right lower quadrant pain; R10.32 Left lower quadrant pain; R10.9 Unspecified abdominal pain
CPT/HCPCS: 36000; 36415; 74176; 80053; 81001; 83690; 85025; 87086; 96365; 99284; J0696

== ENCOUNTER 2023-12-02 18:07 | Emergency (ER) | payer BC ==
[2023-12-02 18:26] VITALS: TEMP 97.8
--- NOTE | 2023-12-02 18:32 | ERPHSYRPT ---
- History of Present Illness Time Seen by Provider: 12/02/23 18:12 Historian: patient Exam Limitations: no limitations Patient Subjective Stated Complaint: pt here for pain to both shoulders worse in left for about 30 mins now, Triage Nursing Assessment: pt alert, resp easy, skin w/d/p, walked in, edema to lower legs. no cough Physician History: 48 years old female fairly healthy presented in the ER with complains of sudden onset substernal chest pain/pressure with some radiation to the shoulders bilaterally with associated palpitations and shortness of breath almost 20 minutes prior to arrival. It started to improve on its own and currently having minimal chest tightness. Denies any fever chills cough or sick contact. Patient also has bilateral lower extremity swelling for last few weeks. Patient was seen at [facility] ER with a negative Doppler ultrasound, CTA chest and cardiac workup, was sent home on diuretics to take for few days. Patient reports after taking diuretics she feels some improvement in her leg swelling. Aspirin Treatment Today: unknown Allergies/Adverse Reactions: No Known Drug Allergies Allergy (Verified 12/02/23 18:09) Home Medications: No Reportable Medications [No Reported Medications] 12/02/23 [History] Hx Tetanus, Diphtheria Vaccination/Date Given: No Hx Influenza Vaccination/Date Given: Yes Hx Pneumococcal Vaccination/Date Given: No Immunizations Up to Date: Yes Travel Risk - International Travel Have you traveled outside of the country in past 3 weeks: No - Emerging Infectious Disease Are you exhibiting symptoms associated with any current EIDs: No Symptoms: Abdominal Pain - Review of Systems Constitutional: No Symptoms Eyes: No Symptoms Ears, Nose, & Throat: No Symptoms Respiratory: Dyspnea Cardiac: Chest Pain, Edema Abdominal/Gastrointestinal: No Symptoms Genitourinary Symptoms: No Symptoms Musculoskeletal: No Symptoms Skin: No Symptoms Neurological: No Symptoms Psychological: No Symptoms Endocrine: No Symptoms Hematologic/Lymphatic: No Symptoms - Past Medical History Pertinent Past Medical History: Yes Neurological History: No Pertinent History ENT History: No Pertinent History Cardiac History: No Pertinent History Respiratory History: No Pertinent History Endocrine Medical History: No Pertinent History Musculoskeletal History: No Pertinent History GI Medical History: No Pertinent History History: No Pertinent History Psycho-Social History: Anxiety Female Reproductive Disorders: No Pertinent History - Past Surgical History Past Surgical History: Yes Neuro Surgical History: No Pertinent History Cardiac: No Pertinent History Respiratory: No Pertinent History Gastrointestinal: No Pertinent History Genitourinary: No Pertinent History Musculoskeletal: Orthopedic Surgery Female Surgical History: No Pertinent History - Female History Hx Last Menstrual Period: week ago Hx Now: No - Social History Smoking Status: Never smoker Exposure to second hand smoke: No Drug Use: none Patient Lives Alone: No - Nursing Vital Signs Nursing Vital Signs: Initial Vital Signs Temperature 97.8 F 12/02/23 18:10 Pulse Rate 112 H 12/02/23 18:10 Respiratory Rate 16 12/02/23 18:10 Blood Pressure 160/100 12/02/23 18:10 O2 Sat by Pulse Oximetry 97 12/02/23 18:10 Pain Scale Pain Intensity 2 - Physical Exam General Appearance: no apparent distress, alert Eye Exam: PERRL/EOMI Ears, Nose, Throat Exam: normal ENT inspection, TMs normal, pharynx normal, moist mucous membranes Neck Exam: normal inspection, non-tender, supple, full range of motion Respiratory Exam: normal breath sounds, lungs clear Cardiovascular Exam: normal heart sounds, tachycardia Gastrointestinal/Abdomen Exam: soft, normal bowel sounds, tenderness Back Exam: normal inspection, normal range of motion Extremity Exam: normal inspection, normal range of motion Neurologic Exam: alert, oriented x 3, cooperative, No depressed mood/affect (Anxious) Skin Exam: normal color SpO2 Interpretation: normal SpO2: 97 O2 Delivery: Room Air - Course EKG Interpreted by Me: RATE (111), Sinus Tach, NORMAL AXIS, NORMAL INTERVALS, Non-specific ST Changes, Other (Nonspecific T wave changes) Ordered Tests: Active Orders 24 hr Category Date Time Status Laser Beam Color Scanner Operator STAT Care 12/02/23 18:30 Completed EKG-ER Only STAT Care 12/02/23 18:29 Completed IV Insertion STAT Care 12/02/23 18:29 Completed CHEST 1 VIEW (PORTABLE) Stat Exams 12/02/23 18:29 Taken CHEST WITH CONTRAST [CT] Stat Exams 12/02/23 20:28 Taken CBC W DIFF Stat Lab 12/02/23 18:40 Completed CMP Stat Lab 12/02/23 18:40 Completed D-DIMER QUANTITATIVE Stat Lab 12/02/23 18:40 Completed NT PRO BNPII Stat Lab 12/02/23 18:40 Completed TROPONIN Q4H Lab 12/02/23 18:40 Completed TROPONIN Q4H Lab 12/02/23 21:40 Completed Medication Summary Discontinued Medications Generic Name Dose Route Start Last Admin Trade Name Freq PRN Reason Stop Dose Admin Aspirin 324 mg 12/02/23 18:29 12/02/23 19:24 Aspirin 81 Mg Tab.Chew PO 12/02/23 18:30 324 mg STAT ONE Administration Aspirin Confirm 12/02/23 19:19 Aspirin 81 Mg Tab.Chew Administered 12/02/23 19:20 Dose 324 mg .ROUTE .STK-MED ONE Lab/Rad Data: Laboratory Result Diagrams 12/02/23 18:40 12/02/23 18:40 Laboratory Results 12/02/23 12/02/23 12/02/23 Range/Units 21:40 18:40 18:40 WBC (4.0-10.5) x10^3/uL RBC (4.1-5.4) x10^6/uL Hgb (12.0-16.0) g/dL Hct (35-47) % MCV (78-100) fL MCH (26-32) pg MCHC (32-36) g/dL RDW (11.5-14.0) % Plt Count (150-450) x10^3/uL MPV (7.5-11.0) fL Gran % (36.0-66.0) % Immature Gran % (Auto) (0.00-0.4) % Nucleat RBC Rel Count (0.00-0.1) % Eos # (Auto) (0-0.5) x10^3/uL Immature Gran # (Auto) (0.00-0.03) x10^3u/L Absolute Lymphs (auto) (1.0-4.6) x10^3/uL Absolute Monos (auto) (0.0-1.3) x10^3/uL Absolute Nucleated RBC (0.00-0.01) x10^3u/L Lymphocytes % (24.0-44.0) % Monocytes % (0.0-12.0) % Eosinophils % (0.00-5.0) % Basophils % (0.0-0.4) % Absolute Granulocytes (1.4-6.9) x10^3/uL Basophils # (0-0.4) x10^3/uL D-Dimer (0.0-0.50) mg/L Sodium (135-145) mmol/L Potassium (3.5-5.1) mmol/L Chloride (98-107) mmol/L Carbon Dioxide (22-30) mmol/L Anion Gap (5-15) MEQ/L BUN (7-17) mg/dL Creatinine (0.52-1.04) mg/dL Estimated GFR ML/MIN Glucose (74-106) mg/dL Calcium (8.4-10.2) mg/dL Total Bilirubin (0.2-1.3) mg/dL AST (14-36) U/L ALT (0-35) U/L Alkaline Phosphatase (38-126) U/L Troponin I < 0.012 < 0.012 (0.000-0.033) ng/mL NT-Pro-B Natriuret Pep < 20.0 (<300) pg/mL Serum Total Protein (6.3-8.2) g/dL Albumin (3.5-5.0) g/dL 12/02/23 12/02/23 12/02/23 Range/Units 18:40 18:40 18:40 WBC 8.8 (4.0-10.5) x10^3/uL RBC 3.98 L (4.1-5.4) x10^6/uL Hgb 12.0 (12.0-16.0) g/dL Hct 37.5 (35-47) % MCV 94.2 (78-100) fL MCH 30.2 (26-32) pg MCHC 32.0 (32-36) g/dL RDW 12.7 (11.5-14.0) % Plt Count 279 (150-450) x10^3/uL MPV 10.3 (7.5-11.0) fL Gran % 73.2 H (36.0-66.0) % Immature Gran % (Auto) 0.5 H (0.00-0.4) % Nucleat RBC Rel Count 0.0 (0.00-0.1) % Eos # (Auto) 0.19 (0-0.5) x10^3/uL Immature Gran # (Auto) 0.04 H (0.00-0.03) x10^3u/L Absolute Lymphs (auto) 1.62 (1.0-4.6) x10^3/uL Absolute Monos (auto) 0.46 (0.0-1.3) x10^3/uL Absolute Nucleated RBC 0.00 (0.00-0.01) x10^3u/L Lymphocytes % 18.4 L (24.0-44.0) % Monocytes % 5.2 (0.0-12.0) % Eosinophils % 2.2 (0.00-5.0) % Basophils % 0.5 (0.0-0.4) % Absolute Granulocytes 6.46 (1.4-6.9) x10^3/uL Basophils # 0.04 (0-0.4) x10^3/uL D-Dimer 0.84 H* (0.0-0.50) mg/L Sodium 138 (135-145) mmol/L Potassium 3.6 (3.5-5.1) mmol/L Chloride 105 (98-107) mmol/L Carbon Dioxide 25 (22-30) mmol/L Anion Gap 11.6 (5-15) MEQ/L BUN 12 (7-17) mg/dL Creatinine 0.65 (0.52-1.04) mg/dL Estimated GFR 108.5 ML/MIN Glucose 151 H (74-106) mg/dL Calcium 9.0 (8.4-10.2) mg/dL Total Bilirubin 0.50 (0.2-1.3) mg/dL AST 25 (14-36) U/L ALT 27 (0-35) U/L Alkaline Phosphatase 62 (38-126) U/L Troponin I (0.000-0.033) ng/mL NT-Pro-B Natriuret Pep (<300) pg/mL Serum Total Protein 7.0 (6.3-8.2) g/dL Albumin 4.2 (3.5-5.0) g/dL - Progress Progress: re-examined Air Movement: good Progress Note: 12/02/23 22:17 . 48 years old is evaluated in the ER for sudden onset chest pressure or tightness. Patient EKG showed sinus tach with no ST elevation. Given aspirin, patient does not want any pain medications. Lungs bilateral clear to auscultation. Patient seems very anxious. She is counseled. She has a negative troponins x 2. Elevated D-dimer but CTA is negative. Patient has chest pain workup done last week at [facility] ER and was negative. Patient is chest pain-free on reevaluation. I do not think patient needs to be admitted. She is advised to have outpatient follow-up with primary care and car diology. Also patient did report that she had a CTA coronary done last year which was negative for any obstructive changes. She is low heart score and is being discharged with outpatient follow-up. Discussed signs symptoms of worsening needing return to ER which she seems understanding. Blood Culture(s) Obtained: No Antibiotics given: No Counseled pt/family regarding: lab results, diagnosis, need for follow-up, rad results Medical Desision Making - Independent Historian Additional History obtained from: Spouse - Diagnostic Testing Diagnostic test were ordered, analyzed, and reviewed by me: Yes Radiological Interpretation: Interpreted by me, Reviewed by me, Teleradiologist Report - Departure Departure Disposition: Home Clinical Impression: Atypical chest pain Condition: Stable Critical Care Time: No Referrals: LOUISE HENDRICKS MD [Primary Care Provider] - Follow up with PCP 1 day ROSANNA POTTER [CONSULTING PHYSICIAN] - Follow up/PCP as directed (Call tomorrow for appointment for reevaluation) Instructions: Angina (DC), Chest Pain (DC) Additional Instructions: Follow-up with primary care and cardiology for reevaluation. Return to ER for intractable chest pain, palpitations, difficulty breathing etc.
[2023-12-02 18:44] LABS: Absolute Neutrophil Ct (ANC) 6.46 x10^3/uL (1.4-6.9); BASOPHIL % 0.5 % (0.0-0.4); Basophil (Absolute #) 0.04 x10^3/uL (0-0.4); Eosinophil % 2.2 % (0.00-5.0); Eosinophil (Absolute #) 0.19 x10^3/uL (0-0.5); Hematocrit 37.5 % (35-47); IMMATURE GRAN # 0.04 x10^3u/L (0.00-0.03); IMMATURE GRAN % 0.5 % (0.00-0.4); Lymphocyte (Absolute #) 1.62 x10^3/uL (1.0-4.6); Lymphocytes % 18.4 % (24.0-44.0); Mean Cell Volume 94.2 fL (78-100); Mean Corpuscular Hemoglobin 30.2 pg (26-32); Mean Platelet Volume 10.3 fL (7.5-11.0); Monocyte (Absolute #) 0.46 x10^3/uL (0.0-1.3); Monocytes % 5.2 % (0.0-12.0); Neutrophil % 73.2 % (36.0-66.0); Platelet Count 279 x10^3/uL (150-450); Red Blood Count 3.98 x10^6/uL (4.1-5.4); Red Cell Distribution Width 12.7 % (11.5-14.0); White Blood Count 8.8 x10^3/uL (4.0-10.5)
[2023-12-02 19:02] LABS: ALBUMIN 4.2 g/dL (3.5-5.0); ANION GAP 11.6 MEQ/L (5-15); BILIRUBIN,TOTAL 0.5 mg/dL (0.2-1.3); Creatinine 1 0.65 mg/dL (0.52-1.04); EST GLOMERULAR FILTRATION RATE 108.5 ML/MIN; Potassium 3.6 mmol/L (3.5-5.1)
[2023-12-02] MEDS ORDERED: BABY ASPIRIN 81 MG CHEW ONE (19:19)
[2023-12-02] MEDS: BABY ASPIRIN 81 MG CHEW PO ONE (19:24)
[2023-12-02 22:36] VITALS: BP 140/87; PULSE 92; RESP 20
[2023-12-02 22:52] VITALS: O2SAT 97
--- NOTE | 2023-12-03 08:19 | XRAY ---
Indication: Chest pain. Short of breath. Pulmonary embolus. Multiple contiguous axial images obtained through the chest using 100 cc Isovue-370 contrast and PE protocol. Comparison: October 03, 2022 Good opacification pulmonary arteries to include the lobar and segmental branches. No pulmonary embolus. Heart is not enlarged. Aorta is normal in course and caliber. No pathologic mediastinal/hilar lymphadenopathy. Lungs demonstrates minimal bibasilar dependent atelectasis. Stable tiny right upper lobe calcified granuloma. No new pulmonary mass/nodule, infiltrate, or effusion. Bony thorax intact again with minimal degenerative changes throughout spine. Limited upper abdomen again demonstrates fatty liver and cholecystectomy. Impression: 1. Continued negative pulmonary embolus. No new/acute cardiopulmonary abnormalities. 2. Again chronic findings including degenerative spondylosis, fatty liver, and old granulomatous disease.
--- NOTE | 2023-12-03 08:31 | XRAY ---
Indication: Chest pain. Comparison: October 19, 2022 Portable chest less inflated and remains clear again with incidental tiny right midlung calcified granuloma. Heart not enlarged. Bony thorax intact again with minimal degenerative changes. No new/acute findings.
== END 2023-12-02 22:32 | disposition home or self-care (01) ==
LOC: ED 18:07
DX: R07.89 Other chest pain (principal); R00.2 Palpitations; R06.02 Shortness of breath
CPT/HCPCS: 36000; 36415; 71045; 71260; 80053; 83880; 84484; 85025; 85379; 93005; 93041; 99284; A9270-GY